=== PATIENT | male | born 1965 | race Asian ===

== ENCOUNTER 2019-07-13 11:10 | Emergency (ER) | payer OTHER ==
[~2019-07-13] VITALS: Ht 160 cm; Wt 65.9 kg
[2019-07-13] MEDS ORDERED: ONDANSETRON HCL 4 MG/2 ML VIAL IVP ONE (11:45)
[2019-07-13] MEDS ORDERED: MORPHINE SULFATE 4 MG/ML SYRINGE IVP ONE (11:45)
[2019-07-13] MEDS ORDERED: CeFAZolin 1 GM/DEXTROSE 50 ML IV ONE (11:45)
[2019-07-13] MEDS ORDERED: PERTUSS(ACELL),DIPH,TET VAC/PF 0.5 ML VIAL IM ONE (11:45)
[2019-07-13 13:34] VITALS: BP 137/85
== END 2019-07-13 14:04 | disposition short-term general hospital (02) ==
LOC: EMS 11:15
DX: S61.211A Laceration without foreign body of left index finger without damage to nail, initial encounter (principal); S61.217A Laceration without foreign body of left little finger without damage to nail, initial encounter; W31.2XXA Contact with powered woodworking and forming machines, initial encounter; Y93.89 Activity, other specified; Y92.89 Other specified places as the place of occurrence of the external cause; Y99.0 Civilian activity done for income or pay
CPT/HCPCS: 73130; 90471; 90715; 96365; 96375; 99285; J0690; J2270; J2405